=== PATIENT | male | born 1975 | race Caucasian/White ===

== ENCOUNTER → 2018-11-30 22:44 | Outpatient (CLI) | payer BC, SELFPAY ==
[2018-11-30 18:09] VITALS: BMI 21.4
[2018-11-30 23:11] LABS: PSA,Total - Annual Screen 0.39 ng/mL (0.00-4.00)
== END ==
PROVIDERS: Referring Provider Nurse Practitioner; Visit Provider Nurse Practitioner
DX: R39.15 Urgency of urination (principal)
CPT/HCPCS: 84153; G0103